=== PATIENT | female | born 1995 | race Caucasian/White ===

== ENCOUNTER 2019-09-14 20:06 | Emergency (ER) | payer OTHER ==
[~2019-09-14] VITALS: Ht 154.9 cm; Wt 85.7 kg
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
[2019-09-14 21:14] VITALS: BP 145/87
== END 2019-09-14 21:15 | disposition home or self-care (01) ==
LOC: ER FS 20:09
DX: J06.9 Acute upper respiratory infection, unspecified (principal); Z87.820 Personal history of traumatic brain injury
CPT/HCPCS: 87430; 87804